=== PATIENT | female | born 1995 | race Caucasian/White ===

== ENCOUNTER 2023-02-13 22:19 | Emergency (ER) | payer MEDICAID ==
[2023-02-13 22:28] VITALS: BP 134/65
--- NOTE | 2023-02-13 22:42 | ED Physician Documentation ---
PD HPI BACK PAIN - Stated complaint Stated Complaint: BACK PX - Chief complaint Chief Complaint: Back Pain - History obtained from History obtained from: Patient - Additional information Additional information: HPI from patient. She c/o left lower parathoracic / upper paralumbar pain radiating to right flank. Onset 4-5 days ago without specific inciting event or circumstances. Denies having had this type of pain before. Denies nausea, vomiting. Pain is worse with lying down, but no ameliorating factors. There is some mild dyspnea and a pleuritic component, as well. Does not feel short of air. Review of Systems Constitutional: denies: Fever, Chills, Sweats Cardiac: reports: Reviewed and negative Respiratory: reports: Reviewed and negative GI: reports: Abdominal Pain (right flank pain radiating around from back (not abominal pain per se)). denies: Abdominal Swelling, Nausea, Vomiting, Constipation, Diarrhea, Hematemesis, Bloody / black stool : denies: Dysuria, Frequency, Hematuria, Now EGA Skin: denies: Rash Musculoskeletal: reports: Back pain. denies: Neck pain PD PAST MEDICAL HISTORY - Past Medical History Past Medical History: No - Past Surgical History Past Surgical History: Yes - Present Medications Home Medications: Ambulatory Orders Medication Instructions Recorded Confirmed Albuterol Sulf [Ventolin Hfa 1 - 2 puffs INH Q4HR PRN #1 each 02/14/23 Inhaler] HYDROcod/ACETAM 5/325 [[place] 5/325] 1 - 2 tablet PO Q6H PRN #12 tablet 02/14/23 predniSONE [Deltasone] 40 mg PO DAILY 3 Days #6 tablet 02/14/23 - Allergies Allergies/Adverse Reactions: Allergies Allergy/AdvReac Type Severity Reaction Status Date / Time No Known Drug Allergies Allergy Verified 02/13/23 22:28 - Social History Does the pt smoke?: No Smoking Status: Never smoker Does the pt drink ETOH?: No Does the pt have substance abuse?: No - Immunizations Immunizations are current?: Yes PD ED PE NORMAL - Vitals Vital signs reviewed: Yes - General General: Alert and oriented X 3, No acute distress, Well developed/nourished - HEENT HEENT: Moist mucous membranes - Neck Neck: Supple, no meningeal sign - Cardiac Cardiac: RRR, No murmur, No gallop, No rub - Respiratory Respiratory: No respiratory distress, Other (bilateral inspiratory and expiratory wheezing) - Abdomen Abdomen: Normal bowel sounds, Soft, Non tender, Non distended - Female Female : Deferred, Pt declined - Rectal Rectal: Deferred - Back Back: No CVA TTP, No spinal TTP - Derm Derm: Normal color, Warm and dry, No rash - Extremities Extremities: No edema - Neuro Neuro: No motor deficit, No sensory deficit Results - Vitals Vitals: Oxygen O2 Source Room air - Labs Labs: Laboratory Tests 02/13/23 02/13/23 02/13/23 23:31 23:31 23:31 WBC 7.0 RBC 4.32 Hgb 12.9 Hct 39.4 MCV 91.2 MCH 29.9 MCHC 32.7 RDW 14.4 Plt Count 377 MPV 9.1 Neut # (Auto) 3.5 Lymph # (Auto) 2.4 [place] # (Auto) 0.7 Eos # (Auto) 0.4 Baso # (Auto) 0.0 Absolute Nucleated RBC 0.00 Nucleated RBC % 0.0 D-Dimer 218.7 Sodium 137 Potassium 4.1 Chloride 103 Carbon Dioxide 25 Anion Gap 9.0 BUN 21 H Creatinine 0.7 Estimated GFR (MDRD) 99 Glucose 112 H Calcium 9.1 Total Bilirubin 0.3 AST 22 ALT 23 Alkaline Phosphatase 49 Total Protein 7.6 Albumin 4.2 Globulin 3.4 Albumin/Globulin Ratio 1.2 Lipase 39 Urine Color Urine Clarity Urine pH Ur Specific [place] Urine Protein Urine Glucose (UA) Urine Ketones Urine Occult Blood Urine Nitrite Urine Bilirubin Urine Urobilinogen Ur Leukocyte Esterase Ur Microscopic Review Urine Culture Comments Urine HCG, Qual 02/13/23 23:35 WBC RBC Hgb Hct MCV MCH MCHC RDW Plt Count MPV Neut # (Auto) Lymph # (Auto) [place] # (Auto) Eos # (Auto) Baso # (Auto) Absolute Nucleated RBC Nucleated RBC % D-Dimer Sodium Potassium Chloride Carbon Dioxide Anion Gap BUN Creatinine Estimated GFR (MDRD) Glucose Calcium Total Bilirubin AST ALT Alkaline Phosphatase Total Protein Albumin Globulin Albumin/Globulin Ratio Lipase Urine Color YELLOW Urine Clarity CLEAR Urine pH 6.0 Ur Specific [place] 1.025 Urine Protein NEGATIVE Urine Glucose (UA) NEGATIVE Urine Ketones NEGATIVE Urine Occult Blood NEGATIVE Urine Nitrite NEGATIVE Urine Bilirubin NEGATIVE Urine Urobilinogen 0.2 (NORMAL) Ur Leukocyte Esterase NEGATIVE Ur Microscopic Review NOT INDICATED Urine Culture Comments NOT INDICATED Urine HCG, Qual NEGATIVE - Rads (name of study) chest xray Relevant Findings:: Prelim report reviewed, EMP independent interpretation of test (I reviewed these images and my interpretation is no acute disease, including no pneumonia nor pneumothorax), See rad report PD Medical Decision Making - ED course Complexity details: reviewed results, re-evaluated patient ED course: Tests ordered and reviewed by me: CBC, ER abdominal panel, UA, UHCG, d-dimer, CXR. CBC is normal, no remarkable findings on ER abdominal panel (elevated bun/cr ratio (21/0.7)). D-dimer level is considered negative. Negative UA and UHCG. There is a surprising amount of wheezing on pulmonary auscultations; she is given duoneb and toradol for pleurisy. She reports much improvement in dyspnea with the duoneb and decreased pain/pleurisy with toradol. I suspect she has a viral bronchitis causing pleurisy. Doubt intraabdominal process as she has no abdominal tenderness throughout on repeated exams during ED stay. Provided rx for albuterol, prednisone (instructed to take the prednisone if the MDI is losing effectiveness). Also given vicodin in ED and rx for same to help with the pleuritic chest pain. Departure - Departure Disposition: 01 Home, Self Care Clinical Impression: Pleurisy Condition: Good Instructions: ED Bronchitis Asthmatic, ED Chest Pain Pleurisy Prescriptions: Albuterol Sulf [Ventolin Hfa Inhaler] 1 - 2 puffs INH Q4HR PRN #1 each PRN Reason: Shortness Of Air/Wheezing predniSONE [Deltasone] 40 mg PO DAILY 3 Days #6 tablet HYDROcod/ACETAM 5/325 [[place] 5/325] 1 - 2 tablet PO Q6H PRN #12 tablet PRN Reason: Pain Comments: There were no concerning or diagnostic findings on tonight's test, including the blood tests and the chest x-ray. You had considerable wheezing on the lung exam, and for this you are given a breathing treatment (DuoNeb) as well as a steroid (Decadron) through the IV. I am providing a prescription for albuterol inhaler, which is similar to the breathing treatment given in the emergency department. I am also providing you a prescription for 3 more days of steroid (prednisone) for its anti-inflammatory effect. Lastly, I am providing you with a prescription for hydrocodone with acetaminophen (narcotic/opiate pain medication). The cause of your symptoms and the wheezing is not apparent at this time. Amongst the possible remaining causes would be a bronchitis ("chest cold") with bronchospasm (spasm of the airway which causes wheezing), and pleurisy resulting from the bronchitis or possibly from chest wall strain from coughing (\\discharge instructions on pleurisy are included in this packet). Certainly, you should return to the emergency department if your symptoms worsen in any way, or if you develop new/concerning signs/symptoms, such as fever or coughing up blood. Forms: Activity restrictions Discharge Date/Time: 02/14/23 01:49
[2023-02-13] MEDS ORDERED: KETOROLAC 30 MG/ML VIAL IVP STA (23:18)
[2023-02-13 23:40] LABS: BASOPHILS % (AUTO) 0.6 %; EOSINOPHILS # (AUTO) 0.4 10^3/uL (0.0-0.7); EOSINOPHILS % (AUTO) 5.1 %; HCT - HEMATOCRIT 39.4 % (37.0-47.0); HGB - HEMOGLOBIN 12.9 g/dL (12.0-16.0); LYMPHOCYTES # (AUTO) 2.4 10^3/uL (1.5-3.5); LYMPHOCYTES % (AUTO) 34.2 %; MEAN CORPUSCULAR HEMOGLOBIN 29.9 pg (27.0-31.0); MEAN CORPUSCULAR HGB CONC 32.7 g/dL (32.0-36.0); MEAN CORPUSCULAR VOLUME 91.2 fL (81.0-99.0); MEAN PLATELET VOLUME 9.1 fL (7.9-10.8); MONOCYTES # (AUTO) 0.7 10^3/uL (0.0-1.0); MONOCYTES % (AUTO) 10.6 %; NEUTROPHILS # (AUTO) 3.5 10^3/uL (1.5-6.6); NEUTROPHILS % (AUTO) 49.2 %; PLT - PLATELET COUNT 377 10^3/uL (130-450); RED BLOOD COUNT 4.32 10^6/uL (4.20-5.40); RED CELL DISTRIBUTION WIDTH 14.4 % (12.0-15.0)
[2023-02-13 23:40] LABS: BILIRUBIN,URINE NEGATIVE (NEGATIVE); GLUCOSE, URINE (UA) NEGATIVE (NEGATIVE); KETONES,URINE (UA) NEGATIVE (NEGATIVE); LEUKOCYTE ESTERASE, URINE NEGATIVE (NEGATIVE); NITRITE,URINE NEGATIVE (NEGATIVE); OCCULT BLOOD,URINE NEGATIVE (NEGATIVE); PROTEIN,URINE NEGATIVE (NEGATIVE); UROBILINOGEN,URINE 0.2 (NORMAL) E.U./dL (NORMAL)
[2023-02-13 23:42] LABS: CLARITY,URINE CLEAR (CLEAR)
[2023-02-13 23:43] LABS: HCG UR QUAL NEGATIVE
[2023-02-14 00:06] LABS: ALBUMIN 4.2 g/dL (3.2-5.5); ALBUMIN/GLOBULIN RATIO 1.2 (1.0-2.2); BILIRUBIN,TOTAL 0.3 mg/dL (0.2-1.0); CALCIUM 9.1 mg/dL (8.5-10.3); CREATININE 0.7 mg/dL (0.4-1.0); POTASSIUM 4.1 mmol/L (3.5-5.0); TOTAL PROTEIN 7.6 g/dL (6.7-8.2)
--- NOTE | 2023-02-14 00:18 | XRAY Report ---
PROCEDURE: Chest 2 View X-Ray INDICATIONS: right-sided pleuritic chest pain TECHNIQUE: 2 views of the chest were acquired. COMPARISON: None. FINDINGS: Surgical changes and devices: None. Lungs and pleura: No pleural effusions or pneumothorax. Lungs are clear. Mediastinum: Mediastinal contours appear normal. Heart size is normal. Bones and chest wall: No suspicious bony lesions. Overlying soft tissues appear unremarkable. IMPRESSION: No acute cardiopulmonary process. Reviewed by: Rohit Lynn MD on 02/14/2023 12:16 AM PDT Approved by: Rohit Lynn MD on 02/14/2023 12:16 AM PDT Station ID: [id number]
[2023-02-14] MEDS ORDERED: IPRATROPIUM/ALBUTEROL 3 ML NEB INH STA (01:07)
[2023-02-14] MEDS ORDERED: HYDROcod/ACET 5/325 Prepack 4 PO STA (01:40)
== END 2023-02-14 01:49 | disposition home or self-care (01) ==
LOC: ED 22:19
DX: R09.1 Pleurisy (principal)
CPT/HCPCS: 36415; 80053; 81001; 81003; 81025; 83690; 85025; 85379; 87086; 94640; 96374; 99284